=== PATIENT | female | born 1935 | race African-American/Black ===

== ENCOUNTER 2018-02-04 04:23 | Emergency (ER) | payer MEDICARE, MEDICAID ==
[~2018-02-04] VITALS: Ht 157.5 cm; Wt 87.0 kg
[~2018-02-04 04:23] MED LIST: ALLO100T PO; ANORO; ATEN50TA PO; AZOPT EACHEYE; CHOL500010 PO; CLON0.3T PO; DIPH25CA83 PO; FOLI-43 PO; FURO40TA5 PO; GLV55 PO; INSNOV SUBCUT; INSU100I19 SQ; MAGN400C PO; SIMV20TA6 PO; VALS160T2 PO; VERA240C2 PO
[2018-02-04 07:31] LABS: BASOPHILS % 0.5 % (0.0-2.0); EOSINOPHILS % 0.6 % (0.0-5.0); HEMATOCRIT. 35.5 % (36.0-48.0); HEMOGLOBIN. 11.4 g/dL (12.0-16.0); LYMPHOCYTES % 12.9 % (20.0-50.0); MEAN CORPUSCULAR HEMOGLOBIN 27.2 pg (28.0-32.0); MEAN CORPUSCULAR VOLUME 84.8 fL (81.0-99.0); MEAN PLATELET VOLUME 8.5 fl (7.4-10.4); MONOCYTES % 6.9 % (2.0-8.0); NEUTROPHILS % 79.1 % (40.0-76.0); PLATELET 261 x1000/uL (130-400); RED BLOOD CELL COUNT 4.19 mill/uL (4.2-5.4); RED CELL DISTRIBUTION WIDTH 15.7 % (11.6-14.6)
[2018-02-04 07:38] LABS: KETONES URINE NEGATIVE (NEGATIVE); LEUKOCYTE ESTERASE URINE NEGATIVE (NEGATIVE); NITRITE URINE NEGATIVE (NEGATIVE); OCCULT BLOOD URINE NEGATIVE (NEGATIVE); PROTEIN URINE NEGATIVE (NEGATIVE); SPECIFIC GRAVITY URINE 1.004 (1.005-1.030); UROBILINOGEN URINE 0.2 E.U./dL (0.2-1.0)
[2018-02-04 07:40] LABS: INR 1.1; PARTIAL THROMBOPLASTIN TIME 27.2 sec (23.4-31.0); PROTHROMBIN TIME 11.2 sec (9.4-11.6)
[2018-02-04 07:51] LABS: CHLORIDE 102 mEq/L (98-107)
[2018-02-04 07:51] LABS: CLARITY URINE CLEAR (CLEAR); COLOR URINE YELLOW (YELLOW)
[2018-02-04 07:56] LABS: TROPONIN I 0.03 ng/mL (0.00-0.04)
[2018-02-04 11:44] VITALS: BP 162/82
== END 2018-02-04 11:45 | disposition home or self-care (01) ==
LOC: ER 04:23
DX: R00.2 Palpitations (principal); E11.9 Type 2 diabetes mellitus without complications; I11.0 Hypertensive heart disease with heart failure; I50.9 Heart failure, unspecified; Z86.73 Personal history of transient ischemic attack (TIA), and cerebral infarction without residual deficits; Z79.4 Long term (current) use of insulin; Z91.013 Allergy to seafood; Z91.048 Other nonmedicinal substance allergy status
CPT/HCPCS: 36415; 71045; 80053; 81003; 82962; 83880; 84484; 85025; 85610; 85730; 93005; 99285

== ENCOUNTER 2018-03-01 21:04 | Emergency (ER) | payer MEDICARE, MEDICAID ==
[~2018-03-01] VITALS: Ht 154.9 cm; Wt 87.0 kg
[2018-03-01 21:15] VITALS: BP 163/61
== END 2018-03-02 03:20 | disposition left against medical advice (07) ==
LOC: ER 21:54
DX: H92.09 Otalgia, unspecified ear (principal); Z53.21 Procedure and treatment not carried out due to patient leaving prior to being seen by health care provider

== ENCOUNTER 2018-03-15 13:25 | Emergency (ER) | payer MEDICARE, MEDICAID ==
[~2018-03-15] VITALS: Ht 154.9 cm; Wt 87.0 kg
[2018-03-15 14:22] LABS: EOSINOPHILS % 0.9 % (0.0-5.0); HEMATOCRIT. 35.7 % (36.0-48.0); HEMOGLOBIN. 11.6 g/dL (12.0-16.0); MEAN CORPUSCULAR HEMOGLOBIN 27.7 pg (28.0-32.0); MEAN CORPUSCULAR VOLUME 85.3 fL (81.0-99.0); MEAN PLATELET VOLUME 8.1 fl (7.4-10.4); NEUTROPHILS % 80.1 % (40.0-76.0); PLATELET 244 x1000/uL (130-400); RED BLOOD CELL COUNT 4.18 mill/uL (4.2-5.4); RED CELL DISTRIBUTION WIDTH 16.7 % (11.6-14.6)
[2018-03-15 14:25] LABS: CHLORIDE 103 mEq/L (98-107)
[2018-03-15 14:38] LABS: INR 1.1; PROTHROMBIN TIME 11.7 sec (9.4-11.6)
[2018-03-15] MEDS ORDERED: CLONIDINE 0.1MG TABLET PO ONE (15:15)
[2018-03-15] MEDS ORDERED: ONDANSETRON 4MG ODT PO ONE (16:15)
[2018-03-15 17:20] VITALS: BP 170/73
== END 2018-03-15 17:30 | disposition home or self-care (01) ==
LOC: ER 14:54
DX: I10 Essential (primary) hypertension (principal); E11.65 Type 2 diabetes mellitus with hyperglycemia; R42 Dizziness and giddiness; E78.00 Pure hypercholesterolemia, unspecified; Z79.4 Long term (current) use of insulin; Z90.49 Acquired absence of other specified parts of digestive tract
CPT/HCPCS: 36415; 80053; 83690; 85025; 85610; 93005; 99285; Q0162

== ENCOUNTER → 2018-03-22 | Outpatient (CLI) | payer MEDICARE, MEDICAID | END | disposition home or self-care (01) | LOC: MAMMO 10:08 | PROVIDERS: ATTEND Specialist | DX: Z12.31 Encounter for screening mammogram for malignant neoplasm of breast (principal) | CPT/HCPCS: 77067 ==

== ENCOUNTER 2018-09-06 15:59 | Inpatient (IN) | payer MEDICARE, MEDICAID ==
[~2018-09-06] VITALS: Ht 152.4 cm; Wt 81.6 kg
[~2018-09-06 15:59] MED LIST changes: -ANORO; -AZOPT EACHEYE; -CHOL500010 PO; +CLOP75TA16 MT; +DEXL60CA3 MT; -DIPH25CA83 PO; -GLV55 PO; -INSNOV SUBCUT; -INSU100I19 SQ; -MAGN400C PO; +TERA2CAP4 MT
[2018-09-06] MEDS ORDERED: MORPHINE SULFATE 4 MG/ML CPJ (NOT FOR IM USE) IV STA (20:54)
[2018-09-06] MEDS ORDERED: ONDANSETRON HCL 4MG/2ML INJ IV STA (20:54)
[2018-09-06 21:52] LABS: BASOPHILS % 0.8 % (0.0-2.0); CHLORIDE 102 mEq/L (98-107); EOSINOPHILS % 4.6 % (0.0-5.0); HEMATOCRIT. 33.4 % (36.0-48.0); HEMOGLOBIN. 10.8 g/dL (12.0-16.0); LYMPHOCYTES % 23.1 % (20.0-50.0); MEAN CORPUSCULAR HEMOGLOBIN 28.8 pg (28.0-32.0); MEAN CORPUSCULAR VOLUME 88.8 fL (81.0-99.0); MEAN PLATELET VOLUME 9.1 fl (7.4-10.4); MONOCYTES % 10.6 % (2.0-8.0); NEUTROPHILS % 60.9 % (40.0-76.0); PLATELET 212 x1000/uL (130-400); RED BLOOD CELL COUNT 3.76 mill/uL (4.2-5.4); RED CELL DISTRIBUTION WIDTH 15.1 % (11.6-14.6)
[2018-09-06 21:54] LABS: INR 1.1; PROTHROMBIN TIME 11.1 sec (9.1-11.1)
[2018-09-06] MEDS ORDERED: METRONIDAZOLE 500 MG PREMIX 100 ML IV ONE (23:15)
[2018-09-06] MEDS ORDERED: CEFTRIAXONE 1 G PREMIX 50 ML IV ONE (23:15)
[2018-09-07] VITALS (7 sets, daily range): BP systolic 109–205; BP diastolic 57–77
[2018-09-07] MEDS ORDERED: ACETAMINOPHEN 325MG TABLET PO PRN
[2018-09-07] MEDS ORDERED: ONDANSETRON HCL 4MG/2ML INJ IV PRN
[2018-09-07] MEDS ORDERED: MAGNESIUM/ALUMINUM HYDROXIDE/SIMETHICONE 30ML UDC PO PRN
[2018-09-07] MEDS ORDERED: DOCUSATE SODIUM 100MG CAPSULE PO PRN
[2018-09-07] MEDS: CLONIDINE 0.1MG TABLET PO PRN ×2 (02:48→19:44)
[2018-09-07] MEDS: SODIUM CHLORIDE 0.9% 1,000 ML IV SCH ×3 (04:33→19:44)
[2018-09-07] MEDS ORDERED: DEXTROSE 50% WATER 50ML SYRINGE IV PRN (11:45)
[2018-09-07] MEDS ORDERED: BLOOD SUGAR DIAGNOSTIC STRIP TEST SCH (12:00)
[2018-09-07] MEDS: BLOOD SUGAR DIAGNOSTIC STRIP TEST SCH ×3 (12:49→21:12)
[2018-09-07] MEDS: INSULIN LISPRO 100 UNITS/ML SUBCUT SCH ×3 (12:55→21:00)
[2018-09-07] MEDS ORDERED: LEVOFLOXACIN 500MG PREMIX 100 ML IV NR (13:00)
[2018-09-07] MEDS: INSULIN GLARGINE UD 100 UNITS/ML SYR SUBCUT SCH (13:40)
[2018-09-07] MEDS: LOSARTAN POTASSIUM 100 MG TABLET PO SCH (16:09)
[2018-09-07] MEDS: CLOPIDOGREL 75MG TABLET PO SCH (16:09)
[2018-09-07] MEDS: METRONIDAZOLE 500 MG PREMIX 100 ML IV SCH ×2 (16:17→21:53)
[2018-09-07] MEDS: ATORVASTATIN CALCIUM 20MG TABLET PO SCH (21:11)
[2018-09-07] MEDS: TERAZOSIN HCL 1MG CAPSULE PO SCH (21:11)
[2018-09-07] MEDS: FUROSEMIDE 20MG TABLET PO SCH (21:11)
[2018-09-07] MEDS: ATENOLOL 50 MG TABLET PO SCH (21:12)
[2018-09-08] VITALS (7 sets, daily range): BP systolic 160–200; BP diastolic 51–80
[2018-09-08] MEDS: CLONIDINE 0.1MG TABLET PO PRN (03:55)
[2018-09-08] MEDS: METRONIDAZOLE 500 MG PREMIX 100 ML IV SCH ×3 (05:51→21:33)
[2018-09-08] MEDS: INSULIN LISPRO 100 UNITS/ML SUBCUT SCH ×4 (06:36→21:46)
[2018-09-08] MEDS: BLOOD SUGAR DIAGNOSTIC STRIP TEST SCH ×4 (06:37→21:33)
[2018-09-08] MEDS ORDERED: AMLODIPINE 10MG TABLET PO SCH (08:15)
[2018-09-08 08:28] LABS: BASOPHILS % 0.8 % (0.0-2.0); EOSINOPHILS % 4.2 % (0.0-5.0); HEMATOCRIT. 33.3 % (36.0-48.0); HEMOGLOBIN. 10.8 g/dL (12.0-16.0); LYMPHOCYTES % 15.8 % (20.0-50.0); MEAN CORPUSCULAR HEMOGLOBIN 28.9 pg (28.0-32.0); MEAN PLATELET VOLUME 9.2 fl (7.4-10.4); MONOCYTES % 10.2 % (2.0-8.0); PLATELET 205 x1000/uL (130-400); RED BLOOD CELL COUNT 3.74 mill/uL (4.2-5.4); RED CELL DISTRIBUTION WIDTH 14.9 % (11.6-14.6)
[2018-09-08] MEDS: FUROSEMIDE 20MG TABLET PO SCH ×2 (08:44→21:33)
[2018-09-08] MEDS: ATENOLOL 50 MG TABLET PO SCH ×2 (08:44→21:32)
[2018-09-08] MEDS: CLOPIDOGREL 75MG TABLET PO SCH (08:44)
[2018-09-08] MEDS: LOSARTAN POTASSIUM 100 MG TABLET PO SCH (08:44)
[2018-09-08] MEDS: SODIUM CHLORIDE 0.9% 1,000 ML IV SCH (08:48)
[2018-09-08] MEDS: INSULIN GLARGINE UD 100 UNITS/ML SYR SUBCUT SCH (10:03)
[2018-09-08] MEDS: CLONIDINE 0.2MG TABLET PO SCH ×3 (10:08→21:33)
[2018-09-08] MEDS ORDERED: MAGNESIUM 2 G PREMIX 50 ML IV SCH (11:00)
[2018-09-08] MEDS ORDERED: MAGNESIUM SULFATE 2 GM in DEXTROSE 5% WATER 46 ML IV SCH (11:00)
[2018-09-08] MEDS ORDERED: LEVOFLOXACIN 250MG PREMIX 50 ML IV SCH (13:00)
[2018-09-08] MEDS: DILTIAZEM HCL 30MG TABLET PO SCH ×2 (13:49→21:32)
[2018-09-08] MEDS ORDERED: MAGNESIUM 2 G PREMIX 50 ML IV NR (14:45)
[2018-09-08] MEDS: ATORVASTATIN CALCIUM 20MG TABLET PO SCH (21:33)
[2018-09-08] MEDS: TERAZOSIN HCL 1MG CAPSULE PO SCH (22:12)
[2018-09-09] VITALS: BP 129/45
[2018-09-09 04:00] VITALS: BP 171/91
[2018-09-09] MEDS: CLONIDINE 0.1MG TABLET PO PRN (04:38)
[2018-09-09] MEDS: DILTIAZEM HCL 30MG TABLET PO SCH (06:15)
[2018-09-09] MEDS: CLONIDINE 0.2MG TABLET PO SCH (06:15)
[2018-09-09] MEDS: METRONIDAZOLE 500 MG PREMIX 100 ML IV SCH (06:15)
[2018-09-09] MEDS: BLOOD SUGAR DIAGNOSTIC STRIP TEST SCH ×2 (06:18→11:17)
[2018-09-09] MEDS: INSULIN LISPRO 100 UNITS/ML SUBCUT SCH ×2 (06:20→12:24)
[2018-09-09 07:48] VITALS: BP 117/46
[2018-09-09 07:54] LABS: BASOPHILS % 0.7 % (0.0-2.0); EOSINOPHILS % 4.9 % (0.0-5.0); HEMATOCRIT. 32.2 % (36.0-48.0); HEMOGLOBIN. 10.7 g/dL (12.0-16.0); LYMPHOCYTES % 17.8 % (20.0-50.0); MEAN CORPUSCULAR HEMOGLOBIN 29.2 pg (28.0-32.0); MEAN CORPUSCULAR VOLUME 88.1 fL (81.0-99.0); MONOCYTES % 10.8 % (2.0-8.0); NEUTROPHILS % 65.8 % (40.0-76.0); PLATELET 197 x1000/uL (130-400); RED BLOOD CELL COUNT 3.66 mill/uL (4.2-5.4); RED CELL DISTRIBUTION WIDTH 14.8 % (11.6-14.6)
[2018-09-09] MEDS: ATENOLOL 50 MG TABLET PO SCH (08:37)
[2018-09-09 08:57] VITALS: BP 136/58
[2018-09-09] MEDS: LOSARTAN POTASSIUM 100 MG TABLET PO SCH (08:57)
[2018-09-09] MEDS: CLOPIDOGREL 75MG TABLET PO SCH (08:57)
[2018-09-09] MEDS: FUROSEMIDE 20MG TABLET PO SCH (08:57)
[2018-09-09] MEDS ORDERED: AMLODIPINE 5MG TABLET PO SCH (09:00)
[2018-09-09] MEDS ORDERED: INSULIN GLARGINE UD 100 UNITS/ML SYR SUBCUT SCH (10:00)
[2018-09-09 11:54] VITALS: BP 141/54
== END 2018-09-09 14:05 | disposition home or self-care (01) | DRG 391 ==
LOC: ER 15:59 → 6EST 09-07 00:01 → ENRESERV 09-07 01:56 → 8WST 09-07 17:32
PROVIDERS: ADMIT Family Medicine Adult Medicine; ATTEND Family Medicine Adult Medicine
DX: K57.92 Diverticulitis of intestine, part unspecified, without perforation or abscess without bleeding (principal); I50.33 Acute on chronic diastolic (congestive) heart failure; J44.1 Chronic obstructive pulmonary disease with (acute) exacerbation; I50.30 Unspecified diastolic (congestive) heart failure; I42.1 Obstructive hypertrophic cardiomyopathy; D64.9 Anemia, unspecified; R00.1 Bradycardia, unspecified; R79.89 Other specified abnormal findings of blood chemistry; E78.5 Hyperlipidemia, unspecified; E11.51 Type 2 diabetes mellitus with diabetic peripheral angiopathy without gangrene; I11.0 Hypertensive heart disease with heart failure; G89.29 Other chronic pain; I16.0 Hypertensive urgency; E11.65 Type 2 diabetes mellitus with hyperglycemia; I27.20 Pulmonary hypertension, unspecified; M10.9 Gout, unspecified; K21.9 Gastro-esophageal reflux disease without esophagitis; Z83.3 Family history of diabetes mellitus; Z82.49 Family history of ischemic heart disease and other diseases of the circulatory system; Z90.710 Acquired absence of both cervix and uterus; Z90.49 Acquired absence of other specified parts of digestive tract; Z91.013 Allergy to seafood; Z91.048 Other nonmedicinal substance allergy status; Z79.899 Other long term (current) drug therapy
CPT/HCPCS: 36415; 71045; 74176; 80048; 82962; 83735; 83880; 84484; 93005; 96365; 96368; 96372; 99285; C1893; J0696; J1815; J1956; J3475; J3490; J7030; J7060

== ENCOUNTER 2020-06-11 11:51 | Emergency (ER) | payer MEDICARE, MEDICAID ==
[~2020-06-11] VITALS: Ht 167.6 cm; Wt 75.0 kg
[~2020-06-11 11:51] MED LIST changes: -CLOP75TA16 MT; +CLOP75TA4 MT; +SIMV-43 PO; -SIMV20TA6 PO; +TRAZ-251 MT
[2020-06-11] MEDS ORDERED: ONDANSETRON HCL 4MG/2ML INJ IV ONE (13:15)
[2020-06-11 13:57] LABS: BASOPHILS % 1.2 % (0.0-2.0); HEMATOCRIT. 36.3 % (36.0-48.0); HEMOGLOBIN. 12.2 g/dL (12.0-16.0); LYMPHOCYTES % 18.3 % (20.0-50.0); MEAN CORPUSCULAR HEMOGLOBIN 29.7 pg (28.0-32.0); MEAN CORPUSCULAR VOLUME 88.3 fL (81.0-99.0); MEAN PLATELET VOLUME 8.1 fl (7.4-10.4); MONOCYTES % 8.4 % (2.0-8.0); NEUTROPHILS % 70.1 % (40.0-76.0); PLATELET 262 x1000/uL (130-400); RED BLOOD CELL COUNT 4.11 mill/uL (4.2-5.4); RED CELL DISTRIBUTION WIDTH 16.5 % (11.6-14.6)
[2020-06-11 14:02] LABS: CHLORIDE 100 mEq/L (98-107)
[2020-06-11] MEDS ORDERED: HYDRALAZINE 20MG/ML VIAL IV ONE (14:15)
[2020-06-11] MEDS ORDERED: ASPIRIN 325MG EC TABLET PO ONE (15:15)
[2020-06-11] MEDS ORDERED: ATENOLOL 50 MG TABLET PO SCH (17:00)
[2020-06-11 17:08] LABS: HDL CHOLESTEROL 51 mg/dL (40-59); LDL CHOLESTEROL 97 mg/dL (5-100)
[2020-06-11 20:00] VITALS: BP 188/82
[2020-06-11] MEDS ORDERED: ATORVASTATIN CALCIUM 20MG TABLET PO SCH (21:00)
[2020-06-11] MEDS ORDERED: HYDRALAZINE HCL 10MG TABLET PO SCH (21:00)
[2020-06-11] MEDS ORDERED: VERAPAMIL HCL 40MG TABLET PO SCH (22:00)
[2020-06-12] MEDS ORDERED: REGADENOSON 0.4 MG/5 ML IV NR (08:00)
== END 2020-06-11 21:49 | disposition left against medical advice (07) ==
LOC: ER 11:51 → EDBEDREQ 15:18 → ER 21:49 → CANBEDREQ 22:37
DX: I25.10 Atherosclerotic heart disease of native coronary artery without angina pectoris (principal); E11.9 Type 2 diabetes mellitus without complications; I10 Essential (primary) hypertension; E87.1 Hypo-osmolality and hyponatremia; J44.9 Chronic obstructive pulmonary disease, unspecified; F02.80 Dementia in other diseases classified elsewhere, unspecified severity, without behavioral disturbance, psychotic disturbance, mood disturbance, and anxiety; M54.5 Low back pain; G30.9 Alzheimer's disease, unspecified; R11.2 Nausea with vomiting, unspecified; Z86.73 Personal history of transient ischemic attack (TIA), and cerebral infarction without residual deficits; Z91.013 Allergy to seafood; Z88.8 Allergy status to other drugs, medicaments and biological substances; Z91.041 Radiographic dye allergy status; Z79.899 Other long term (current) drug therapy
CPT/HCPCS: 36415; 71045; 80053; 80061; 83880; 84484; 85025; 93005; 96374; 96375; 99285; J0360; J2405

== ENCOUNTER 2020-06-17 11:28 | Emergency (ER) | payer MEDICARE, MEDICAID ==
[~2020-06-17] VITALS: Ht 157.5 cm; Wt 82.0 kg
[2020-06-17 12:36] LABS: CLARITY URINE CLEAR (CLEAR); COLOR URINE YELLOW (YELLOW); KETONES URINE NEGATIVE (NEGATIVE); LEUKOCYTE ESTERASE URINE NEGATIVE (NEGATIVE); NITRITE URINE NEGATIVE (NEGATIVE); OCCULT BLOOD URINE NEGATIVE (NEGATIVE); PROTEIN URINE 2+ (NEGATIVE); SPECIFIC GRAVITY URINE 1.019 (1.005-1.030); UROBILINOGEN URINE 0.2 E.U./dL (0.2-1.0)
[2020-06-17 12:37] LABS: BASOPHILS % 0.9 % (0.0-2.0); EOSINOPHILS % 0.7 % (0.0-5.0); HEMATOCRIT. 36.4 % (36.0-48.0); HEMOGLOBIN. 12.1 g/dL (12.0-16.0); LYMPHOCYTES % 14.8 % (20.0-50.0); MEAN CORPUSCULAR HEMOGLOBIN 29.4 pg (28.0-32.0); MEAN CORPUSCULAR VOLUME 88.7 fL (81.0-99.0); MEAN PLATELET VOLUME 8.1 fl (7.4-10.4); MONOCYTES % 5.9 % (2.0-8.0); NEUTROPHILS % 77.7 % (40.0-76.0); PLATELET 290 x1000/uL (130-400); RED BLOOD CELL COUNT 4.11 mill/uL (4.2-5.4)
[2020-06-17 12:44] LABS: CHLORIDE 98 mEq/L (98-107)
[2020-06-17 12:46] LABS: INR 1.1; PROTHROMBIN TIME 11.3 sec (9.6-11.0)
[2020-06-17] MEDS ORDERED: AMLODIPINE 10MG TABLET PO ONE (13:00)
[2020-06-17] MEDS ORDERED: ACETAMINOPHEN WITH CODEINE 300/30MG TABLET PO ONE (13:00)
[2020-06-17] MEDS ORDERED: CLONIDINE 0.1MG TABLET PO NR (15:30)
[2020-06-17 16:04] VITALS: BP 165/77
== END 2020-06-17 16:05 | disposition home or self-care (01) ==
LOC: ER 11:28
DX: M54.5 Low back pain (principal); I16.0 Hypertensive urgency; E11.9 Type 2 diabetes mellitus without complications; Z90.49 Acquired absence of other specified parts of digestive tract; Z91.041 Radiographic dye allergy status; Z91.013 Allergy to seafood
CPT/HCPCS: 36415; 72131; 80053; 81003; 85025; 93005; 99285

== ENCOUNTER 2020-10-31 12:34 | Emergency (ER) | payer MEDICARE, MEDICAID ==
[~2020-10-31] VITALS: Ht 154.9 cm; Wt 82.0 kg
[2020-10-31 12:44] VITALS: BP 152/64
[2020-10-31] MEDS ORDERED: ACETAMINOPHEN 325MG TABLET PO ONE (16:30)
[2020-10-31 19:24] LABS: CLARITY URINE CLOUDY (CLEAR); COLOR URINE YELLOW (YELLOW); KETONES URINE TRACE (NEGATIVE); LEUKOCYTE ESTERASE URINE 1+ (NEGATIVE); NITRITE URINE NEGATIVE (NEGATIVE); OCCULT BLOOD URINE 2+ (NEGATIVE); PROTEIN URINE 3+ (NEGATIVE); SPECIFIC GRAVITY URINE 1.024 (1.005-1.030)
[2020-10-31] MEDS ORDERED: ACETAMINOPHEN 325MG TABLET PO NR (20:30)
== END 2020-10-31 20:49 | disposition home or self-care (01) ==
LOC: ER 12:34
DX: N39.0 Urinary tract infection, site not specified (principal); M43.16 Spondylolisthesis, lumbar region; I11.9 Hypertensive heart disease without heart failure; E11.9 Type 2 diabetes mellitus without complications; J45.909 Unspecified asthma, uncomplicated; Z79.899 Other long term (current) drug therapy
CPT/HCPCS: 72100; 81003; 87077; 87186; 99284

== ENCOUNTER 2021-07-08 14:36 | Inpatient (IN) | payer MEDICARE, MEDICAID ==
[~2021-07-08] VITALS: Ht 153.4 cm; Wt 65.8 kg
[2021-07-08] MEDS ORDERED: ASPIRIN 81MG TABLET PO ONE (19:15)
[2021-07-08 19:19] LABS: BASOPHILS % 0.7 % (0.0-2.0); EOSINOPHILS % 3.5 % (0.0-5.0); HEMATOCRIT. 34.2 % (36.0-48.0); HEMOGLOBIN. 11.1 g/dL (12.0-16.0); LYMPHOCYTES % 33.9 % (20.0-50.0); MEAN CORPUSCULAR HEMOGLOBIN 28.2 pg (28.0-32.0); MEAN CORPUSCULAR VOLUME 87.1 fL (81.0-99.0); MONOCYTES % 11.8 % (2.0-8.0); NEUTROPHILS % 50.1 % (40.0-76.0); PLATELET 249 x1000/uL (130-400); RED BLOOD CELL COUNT 3.92 mill/uL (4.2-5.4); RED CELL DISTRIBUTION WIDTH 16.3 % (11.6-14.6)
[2021-07-08 19:26] LABS: CHLORIDE 103 mEq/L (98-107)
[2021-07-08] MEDS ORDERED: MORPHINE SULFATE 4 MG/ML CPJ (NOT FOR IM USE) IV ONE (19:45)
[2021-07-08] MEDS ORDERED: HYDRALAZINE 20MG/ML VIAL IV NR (19:45)
[2021-07-08] MEDS ORDERED: DEXTROSE 50% WATER 50ML SYRINGE IV NR ×2 (20:15→22:00)
[2021-07-08] MEDS ORDERED: DIPHENHYDRAMINE 50MG/ML VIAL IV PRN (21:45)
[2021-07-08] MEDS ORDERED: ACETAMINOPHEN 325MG TABLET PO PRN ×2 (21:45)
[2021-07-08] MEDS ORDERED: ACETAMINOPHEN 650MG SUPP PR PRN (21:45)
[2021-07-08] MEDS ORDERED: MAGNESIUM/ALUMINUM HYDROXIDE/SIMETHICONE 30ML UDC PO PRN (21:45)
[2021-07-08] MEDS ORDERED: GUAIFENESIN 200MG/10ML SUGAR FREE UDC PO PRN (21:45)
[2021-07-08] MEDS ORDERED: NITROGLYCERIN 50MG PREMIX 250 ML IV PRN (21:45)
[2021-07-08] MEDS ORDERED: ONDANSETRON HCL 4MG/2ML INJ IV PRN (21:45)
[2021-07-08] MEDS ORDERED: CLONIDINE 0.1MG TABLET PO PRN (21:45)
[2021-07-08] MEDS ORDERED: LORAZEPAM 0.5MG TABLET PO PRN (21:45)
[2021-07-08] MEDS ORDERED: IPRATROPIUM/ALBUTEROL 0.5-3(2.5)MG/3ML NEB HHN PRN (21:45)
[2021-07-08] MEDS ORDERED: NITROGLYCERIN OINT 1GM/INCH UDPKT TD SCH (21:45)
[2021-07-08] MEDS ORDERED: DOCUSATE SODIUM 100MG CAPSULE PO PRN (21:45)
[2021-07-08] MEDS ORDERED: HYDROCODONE/ACETAMINOPHEN 5/325MG TABLET PO PRN (21:45)
[2021-07-08] MEDS ORDERED: MORPHINE SULFATE 2 MG/ML CPJ (NOT FOR IM USE) IV PRN (21:45)
[2021-07-08] MEDS ORDERED: DEXTROSE 50% WATER 50ML SYRINGE IV PRN (22:30)
[2021-07-08] MEDS ORDERED: NALOXONE HCL 0.4MG/ML VIAL IV PRN (22:45)
[2021-07-08] MEDS: AMLODIPINE 10MG TABLET PO SCH (23:43)
[2021-07-09] MEDS ORDERED: CLONIDINE 0.2MG TABLET PO ONE (03:00)
[2021-07-09] MEDS ORDERED: ENALAPRIL 2.5MG/2ML VIAL 2ML IV ONE (03:00)
[2021-07-09] MEDS ORDERED: ENALAPRIL 1.25MG/ML VIAL 1ML IV NR (03:45)
[2021-07-09 05:47] LABS: BASOPHILS % 0.5 % (0.0-2.0); EOSINOPHILS % 2.3 % (0.0-5.0); HEMATOCRIT. 36.4 % (36.0-48.0); LYMPHOCYTES % 14.8 % (20.0-50.0); MEAN PLATELET VOLUME 8.8 fl (7.4-10.4); MONOCYTES % 11.4 % (2.0-8.0); PLATELET 240 x1000/uL (130-400); RED BLOOD CELL COUNT 4.28 mill/uL (4.2-5.4); RED CELL DISTRIBUTION WIDTH 15.9 % (11.6-14.6)
[2021-07-09 05:51] LABS: CHLORIDE 104 mEq/L (98-107)
[2021-07-09 05:59] LABS: CREATINE KINASE 73 IU/L (26-192); HDL CHOLESTEROL 63 mg/dL (40-59)
[2021-07-09 06:01] LABS: LDL CHOLESTEROL 54 mg/dL (5-100)
[2021-07-09 06:11] LABS: T4 FREE 1.28 ng/dL (0.76-1.46)
[2021-07-09] MEDS ORDERED: HYDRALAZINE 20MG/ML VIAL IV ONE (06:15)
[2021-07-09] MEDS: BLOOD SUGAR DIAGNOSTIC STRIP TEST SCH ×4 (06:30→20:23)
[2021-07-09] MEDS: INSULIN LISPRO 100 UNITS/ML SUBCUT SCH ×4 (07:00→20:23)
[2021-07-09] MEDS: AMLODIPINE 10MG TABLET PO SCH (09:12)
[2021-07-09] MEDS ORDERED: FUROSEMIDE 20MG/2ML VIAL IVP SCH (10:45)
[2021-07-09] MEDS: CLONIDINE 0.2MG TABLET PO SCH ×2 (11:04→20:15)
[2021-07-09] MEDS: ATENOLOL 25MG TABLET PO SCH (13:06)
[2021-07-09 15:15] VITALS: BP 141/44
[2021-07-09 16:00] VITALS: BP 141/44
[2021-07-09] MEDS ORDERED: IPRATROPIUM/ALBUTEROL 0.5-3(2.5)MG/3ML NEB HHN SCH (18:30)
[2021-07-09 20:00] VITALS: BP 179/60
[2021-07-10] VITALS: BP 101/59
[2021-07-10 04:00] VITALS: BP 174/54
[2021-07-10] MEDS: BLOOD SUGAR DIAGNOSTIC STRIP TEST SCH ×2 (06:33→13:00)
[2021-07-10] MEDS: INSULIN LISPRO 100 UNITS/ML SUBCUT SCH ×2 (06:33→13:06)
[2021-07-10 07:26] LABS: BASOPHILS % 0.7 % (0.0-2.0); EOSINOPHILS % 3.8 % (0.0-5.0); HEMOGLOBIN. 11.2 g/dL (12.0-16.0); LYMPHOCYTES % 19.6 % (20.0-50.0); MEAN CORPUSCULAR HEMOGLOBIN 28.2 pg (28.0-32.0); MEAN CORPUSCULAR VOLUME 85.4 fL (81.0-99.0); MEAN PLATELET VOLUME 8.9 fl (7.4-10.4); MONOCYTES % 11.7 % (2.0-8.0); NEUTROPHILS % 64.2 % (40.0-76.0); PLATELET 224 x1000/uL (130-400); RED BLOOD CELL COUNT 3.98 mill/uL (4.2-5.4); RED CELL DISTRIBUTION WIDTH 16.6 % (11.6-14.6)
[2021-07-10 08:00] VITALS: BP 155/62
[2021-07-10] MEDS: CLONIDINE 0.2MG TABLET PO SCH (08:42)
[2021-07-10] MEDS: AMLODIPINE 10MG TABLET PO SCH (08:42)
[2021-07-10] MEDS: ATENOLOL 25MG TABLET PO SCH (08:42)
[2021-07-10] MEDS ORDERED: MAGNESIUM 1 G PREMIX 100 ML IV SCH (11:00)
[2021-07-10 12:00] VITALS: BP 141/46
[2021-07-10 16:00] VITALS: BP 124/48
[2021-07-10 16:36] VITALS: BP 124/48
== END 2021-07-10 17:17 | disposition home or self-care (01) | DRG 304 ==
LOC: ER 14:36 → MICUSO 21:42 → EDBEDREQTM 22:12 → EDBEDREQSVC 22:12 → EDBEDREQ 22:12 → 8WST 07-09 14:08
PROVIDERS: ADMIT Hospitalist; ATTEND Family Medicine Adult Medicine
DX: I16.1 Hypertensive emergency (principal); N17.0 Acute kidney failure with tubular necrosis; I42.1 Obstructive hypertrophic cardiomyopathy; E11.649 Type 2 diabetes mellitus with hypoglycemia without coma; E11.51 Type 2 diabetes mellitus with diabetic peripheral angiopathy without gangrene; I10 Essential (primary) hypertension; E78.5 Hyperlipidemia, unspecified; F10.10 Alcohol abuse, uncomplicated; I25.10 Atherosclerotic heart disease of native coronary artery without angina pectoris; J44.9 Chronic obstructive pulmonary disease, unspecified; N32.89 Other specified disorders of bladder; Z86.73 Personal history of transient ischemic attack (TIA), and cerebral infarction without residual deficits; Z90.49 Acquired absence of other specified parts of digestive tract; Z95.820 Peripheral vascular angioplasty status with implants and grafts; Z91.041 Radiographic dye allergy status; Z91.013 Allergy to seafood; Z79.899 Other long term (current) drug therapy; R10.11 Right upper quadrant pain
CPT/HCPCS: 36415; 71045; 74176; 76705; 80048; 80053; 80061; 82550; 82962; 83036; 83735; 83880; 84439; 84443; 84484; 85025; 93005; 93306; 97162; 97166; 97535; 99291; J0360; J1815; J1940; J3475; J3490; J7040

== ENCOUNTER 2022-05-15 17:39 | Inpatient (IN) | payer MEDICARE, MEDICAID ==
[~2022-05-15] VITALS: Ht 157.5 cm; Wt 64.2 kg
[~2022-05-15 17:39] MED LIST changes: +CLOP-31 MT; -CLOP75TA4 MT
[2022-05-15 21:49] LABS: EOSINOPHILS % 2.8 % (0.0-5.0); HEMATOCRIT. 31.9 % (36.0-48.0); HEMOGLOBIN. 10.1 g/dL (12.0-16.0); LYMPHOCYTES % 20.6 % (20.0-50.0); MEAN CORPUSCULAR HEMOGLOBIN 26.8 pg (28.0-32.0); MEAN CORPUSCULAR VOLUME 84.5 fL (81.0-99.0); MEAN PLATELET VOLUME 8.6 fl (7.4-10.4); MONOCYTES % 10.1 % (2.0-8.0); NEUTROPHILS % 65.5 % (40.0-76.0); PLATELET 231 x1000/uL (130-400); RED BLOOD CELL COUNT 3.78 mill/uL (4.2-5.4); RED CELL DISTRIBUTION WIDTH 16.3 % (11.6-14.6)
[2022-05-15 21:52] LABS: CHLORIDE 102 mEq/L (98-107)
[2022-05-15] MEDS ORDERED: FUROSEMIDE 40MG/4ML VIAL IVP NR (22:30)
[2022-05-15] MEDS ORDERED: ASPIRIN 325MG EC TABLET PO NR (22:30)
[2022-05-15] MEDS ORDERED: CLONIDINE 0.2MG TABLET PO ONE (23:45)
[2022-05-16] MEDS ORDERED: MORPHINE SULFATE 2 MG/ML CPJ (NOT FOR IM USE) IV PRN (00:15)
[2022-05-16] MEDS ORDERED: ACETAMINOPHEN 650MG SUPP PR PRN ×2 (00:15)
[2022-05-16] MEDS ORDERED: ACETAMINOPHEN 325MG TABLET PO PRN ×2 (00:15)
[2022-05-16] MEDS ORDERED: DOCUSATE SODIUM 100MG CAPSULE PO PRN (00:15)
[2022-05-16] MEDS ORDERED: MAGNESIUM/ALUMINUM HYDROXIDE/SIMETHICONE 30ML UDC PO PRN (00:15)
[2022-05-16] MEDS ORDERED: IPRATROPIUM/ALBUTEROL 0.5-3(2.5)MG/3ML NEB HHN PRN (00:15)
[2022-05-16] MEDS ORDERED: GUAIFENESIN 200MG/10ML SUGAR FREE UDC PO PRN (00:15)
[2022-05-16] MEDS ORDERED: HYDROCODONE/ACETAMINOPHEN 5/325MG TABLET PO PRN (00:15)
[2022-05-16] MEDS ORDERED: CLONIDINE 0.1MG TABLET PO PRN (00:15)
[2022-05-16] MEDS ORDERED: ONDANSETRON HCL 4MG/2ML INJ IV PRN (00:15)
[2022-05-16] MEDS ORDERED: ENOXAPARIN 60MG/0.6ML SYR SUBCUT NR ×2 (01:30→02:15)
[2022-05-16 02:00] LABS: CLARITY URINE CLEAR (CLEAR); COLOR URINE YELLOW (YELLOW); KETONES URINE NEGATIVE (NEGATIVE); LEUKOCYTE ESTERASE URINE 2+ (NEGATIVE); NITRITE URINE POSITIVE (NEGATIVE); OCCULT BLOOD URINE NEGATIVE (NEGATIVE); PH URINE 5.5 (4.5-8.0); PROTEIN URINE TRACE (NEGATIVE); SPECIFIC GRAVITY URINE 1.009 (1.005-1.030); UROBILINOGEN URINE 0.2 E.U./dL (0.2-1.0)
[2022-05-16] MEDS ORDERED: CEFTRIAXONE 1 G PREMIX 50 ML IV NR (02:15)
[2022-05-16 04:50] VITALS: BP 136/59
[2022-05-16 08:00] VITALS: BP 129/57
[2022-05-16] MEDS ORDERED: DEXTROSE 50% WATER 50ML SYRINGE IV PRN (08:15)
[2022-05-16] MEDS ORDERED: CEFTRIAXONE 1 G PREMIX 50 ML IV SCH (09:15)
[2022-05-16] MEDS: FUROSEMIDE 40MG/4ML VIAL IVP SCH (09:45)
[2022-05-16 12:00] VITALS: BP 149/57
[2022-05-16 12:27] LABS: CHLORIDE 102 mEq/L (98-107)
[2022-05-16 12:46] LABS: CREATINE KINASE 71 IU/L (26-192); CREATINE KINASE MB FRACTION 3.8 ng/mL (0.5-3.6); HDL CHOLESTEROL 63 mg/dL (40-59); LDL CHOLESTEROL 81 mg/dL (5-100)
[2022-05-16 16:00] VITALS: BP 162/65
[2022-05-16 16:20] LABS: CREATINE KINASE 50 IU/L (26-192)
[2022-05-16 20:00] VITALS: BP 189/75
[2022-05-17] VITALS (7 sets, daily range): BP systolic 142–184; BP diastolic 59–87
[2022-05-17] MEDS ORDERED: AMLODIPINE 2.5MG TABLET PO NR (00:15)
[2022-05-17] MEDS ORDERED: CLONIDINE 0.1MG TABLET PO NR (00:15)
[2022-05-17] MEDS: AMLODIPINE 2.5MG TABLET PO SCH ×2 (00:16→09:07)
[2022-05-17] MEDS: CLONIDINE 0.1MG TABLET PO PRN ×2 (05:12→16:08)
[2022-05-17] MEDS: CEFTRIAXONE 1,000 MG in DEXTROSE 5% WATER 50 ML IV SCH (05:13)
[2022-05-17 06:52] LABS: BASOPHILS % 0.6 % (0.0-2.0); EOSINOPHILS % 3.1 % (0.0-5.0); HEMATOCRIT. 34.3 % (36.0-48.0); HEMOGLOBIN. 11.1 g/dL (12.0-16.0); LYMPHOCYTES % 17.1 % (20.0-50.0); MEAN CORPUSCULAR HEMOGLOBIN 27.3 pg (28.0-32.0); MEAN CORPUSCULAR VOLUME 84.2 fL (81.0-99.0); MEAN PLATELET VOLUME 9.2 fl (7.4-10.4); MONOCYTES % 10.6 % (2.0-8.0); NEUTROPHILS % 68.6 % (40.0-76.0); PLATELET 206 x1000/uL (130-400); RED BLOOD CELL COUNT 4.07 mill/uL (4.2-5.4); RED CELL DISTRIBUTION WIDTH 16.6 % (11.6-14.6)
[2022-05-17] MEDS: FUROSEMIDE 40MG/4ML VIAL IVP SCH (09:05)
[2022-05-17] MEDS: METOPROLOL TARTRATE 50MG TABLET PO SCH (20:53)
[2022-05-18] VITALS (9 sets, daily range): BP systolic 129–180; BP diastolic 43–78
[2022-05-18] MEDS: CLONIDINE 0.1MG TABLET PO PRN (02:00)
[2022-05-18] MEDS: CEFTRIAXONE 1,000 MG in DEXTROSE 5% WATER 50 ML IV SCH (05:00)
[2022-05-18] MEDS ORDERED: NALOXONE HCL 0.4MG/ML VIAL IV PRN (08:00)
[2022-05-18] MEDS: AMLODIPINE 2.5MG TABLET PO SCH (09:30)
[2022-05-18] MEDS: ENOXAPARIN 30MG/0.3ML SYR SUBCUT SCH (09:32)
[2022-05-18] MEDS: METOPROLOL TARTRATE 50MG TABLET PO SCH ×2 (09:32→20:49)
[2022-05-18] MEDS: FUROSEMIDE 40MG/4ML VIAL IVP SCH (13:30)
[2022-05-18 17:15] LABS: BASOPHILS % 0.7 % (0.0-2.0); EOSINOPHILS % 2.6 % (0.0-5.0); HEMATOCRIT. 33.8 % (36.0-48.0); HEMOGLOBIN. 10.9 g/dL (12.0-16.0); LYMPHOCYTES % 17.8 % (20.0-50.0); MEAN CORPUSCULAR HEMOGLOBIN 27.2 pg (28.0-32.0); MEAN CORPUSCULAR VOLUME 84.2 fL (81.0-99.0); MEAN PLATELET VOLUME 9.5 fl (7.4-10.4); MONOCYTES % 10.7 % (2.0-8.0); NEUTROPHILS % 68.2 % (40.0-76.0); PLATELET 213 x1000/uL (130-400); RED BLOOD CELL COUNT 4.01 mill/uL (4.2-5.4)
[2022-05-19] VITALS (7 sets, daily range): BP systolic 144–181; BP diastolic 44–60
[2022-05-19] MEDS: CEFTRIAXONE 1,000 MG in DEXTROSE 5% WATER 50 ML IV SCH (05:40)
[2022-05-19] MEDS: CLONIDINE 0.1MG TABLET PO PRN ×2 (06:23→17:24)
[2022-05-19] MEDS: AMLODIPINE 2.5MG TABLET PO SCH (09:58)
[2022-05-19] MEDS: FUROSEMIDE 40MG/4ML VIAL IVP SCH (09:58)
[2022-05-19] MEDS: METOPROLOL TARTRATE 50MG TABLET PO SCH ×2 (09:58→20:28)
[2022-05-19] MEDS: ENOXAPARIN 30MG/0.3ML SYR SUBCUT SCH (09:58)
[2022-05-19] MEDS ORDERED: THIAMINE HCL 100MG TABLET PO SCH (15:45)
[2022-05-19] MEDS ORDERED: FOLIC ACID 1MG TABLET PO SCH (15:45)
== END 2022-05-19 22:04 | DRG 280 ==
LOC: ER 17:39 → MICUSO 23:23 → 5EST 05-16 04:34 → 7WST 05-18 10:54
PROVIDERS: ADMIT Family Medicine Adult Medicine; ATTEND Family Medicine Adult Medicine
DX: I21.4 Non-ST elevation (NSTEMI) myocardial infarction (principal); G93.41 Metabolic encephalopathy; I50.33 Acute on chronic diastolic (congestive) heart failure; E44.1 Mild protein-calorie malnutrition; I42.1 Obstructive hypertrophic cardiomyopathy; N39.0 Urinary tract infection, site not specified; G82.20 Paraplegia, unspecified; N17.9 Acute kidney failure, unspecified; D64.9 Anemia, unspecified; E11.649 Type 2 diabetes mellitus with hypoglycemia without coma; B96.20 Unspecified Escherichia coli [E. coli] as the cause of diseases classified elsewhere; E11.51 Type 2 diabetes mellitus with diabetic peripheral angiopathy without gangrene; E78.5 Hyperlipidemia, unspecified; I11.0 Hypertensive heart disease with heart failure; I25.10 Atherosclerotic heart disease of native coronary artery without angina pectoris; J44.9 Chronic obstructive pulmonary disease, unspecified; M10.9 Gout, unspecified; R26.89 Other abnormalities of gait and mobility; R53.81 Other malaise; M48.061 Spinal stenosis, lumbar region without neurogenic claudication; Z20.822 Contact with and (suspected) exposure to COVID-19; Z82.49 Family history of ischemic heart disease and other diseases of the circulatory system; Z86.73 Personal history of transient ischemic attack (TIA), and cerebral infarction without residual deficits; Z90.49 Acquired absence of other specified parts of digestive tract; Z68.25 Body mass index [BMI] 25.0-25.9, adult; Z91.041 Radiographic dye allergy status; Z91.013 Allergy to seafood; Z79.899 Other long term (current) drug therapy
CPT/HCPCS: 36415; 71045; 80048; 80053; 80061; 81003; 82140; 82550; 82553; 82962; 83605; 83735; 83880; 84145; 84443; 84484; 85025; 87077; 87186; 87426; 93005; 93306; 93970; 97162; 97530; 99291; C1893; J0696; J1650; J1940; J7060

== ENCOUNTER 2022-05-19 21:55 | Inpatient (IN) | payer MEDICARE, MEDICAID ==
[~2022-05-19] VITALS: Ht 157.5 cm; Wt 57.6 kg
[2022-05-19 22:10] VITALS: BP 146/51
[2022-05-19] MEDS ORDERED: ONDANSETRON HCL 4MG/2ML INJ IV PRN (23:15)
[2022-05-19] MEDS ORDERED: NALOXONE HCL 0.4 MG/ML 1ML VIAL IV PRN (23:15)
[2022-05-19] MEDS ORDERED: IPRATROPIUM/ALBUTEROL 0.5-3(2.5)MG/3ML NEB HHN PRN (23:15)
[2022-05-19] MEDS ORDERED: MAGNESIUM/ALUMINUM HYDROXIDE/SIMETHICONE 30ML UDC PO PRN (23:15)
[2022-05-19] MEDS ORDERED: CLONIDINE 0.1MG TABLET PO PRN (23:15)
[2022-05-19] MEDS ORDERED: ACETAMINOPHEN 325MG TABLET PO PRN (23:15)
[2022-05-19] MEDS ORDERED: GUAIFENESIN 200MG/10ML SUGAR FREE UDC PO PRN (23:15)
[2022-05-19] MEDS ORDERED: DEXTROSE 50% WATER 50ML SYRINGE IV PRN (23:15)
[2022-05-19] MEDS ORDERED: ACETAMINOPHEN 650MG SUPP PR PRN ×2 (23:15)
[2022-05-20] MEDS: HYDROCODONE/ACETAMINOPHEN 5/325MG TABLET PO PRN ×2 (04:59→15:01)
[2022-05-20 07:48] LABS: BASOPHILS % 0.9 % (0.0-2.0); EOSINOPHILS % 2.3 % (0.0-5.0); HEMATOCRIT. 31.4 % (36.0-48.0); HEMOGLOBIN. 10.2 g/dL (12.0-16.0); LYMPHOCYTES % 17.4 % (20.0-50.0); MEAN CORPUSCULAR HEMOGLOBIN 27.1 pg (28.0-32.0); MEAN CORPUSCULAR VOLUME 83.4 fL (81.0-99.0); MEAN PLATELET VOLUME 9.6 fl (7.4-10.4); MONOCYTES % 11.3 % (2.0-8.0); NEUTROPHILS % 68.1 % (40.0-76.0); PLATELET 204 x1000/uL (130-400); RED BLOOD CELL COUNT 3.77 mill/uL (4.2-5.4); RED CELL DISTRIBUTION WIDTH 16.4 % (11.6-14.6)
[2022-05-20 08:08] LABS: CHLORIDE 97 mEq/L (98-107)
[2022-05-20] MEDS ORDERED: AMLODIPINE 2.5MG TABLET PO SCH (09:00)
[2022-05-20] MEDS: CEFTRIAXONE 1,000 MG in DEXTROSE 5% WATER 50 ML IV SCH (09:53)
[2022-05-20] MEDS: ENOXAPARIN 30MG/0.3ML SYR SUBCUT SCH (09:54)
[2022-05-20] MEDS: THIAMINE HCL 100MG TABLET PO SCH (09:54)
[2022-05-20] MEDS: FOLIC ACID 1MG TABLET PO SCH (09:54)
[2022-05-20] MEDS: FUROSEMIDE 40MG/4ML VIAL IVP SCH (09:55)
[2022-05-20] MEDS: DOCUSATE SODIUM 100MG CAPSULE PO PRN (09:55)
[2022-05-20] MEDS: METOPROLOL TARTRATE 50MG TABLET PO SCH ×2 (09:55→21:00)
[2022-05-20] MEDS ORDERED: AMLODIPINE 2.5MG TABLET PO NR (12:30)
[2022-05-20 17:59] LABS: T4 FREE 1.31 ng/dL (0.76-1.46)
[2022-05-20 20:00] VITALS: BP_SYST 106; BP_SYST 149; BP_DIAS 63; BP_DIAS 64
[2022-05-21 06:39] LABS: EOSINOPHILS % 2.2 % (0.0-5.0); HEMATOCRIT. 32.6 % (36.0-48.0); HEMOGLOBIN. 10.7 g/dL (12.0-16.0); LYMPHOCYTES % 17.2 % (20.0-50.0); MEAN CORPUSCULAR HEMOGLOBIN 27.3 pg (28.0-32.0); MEAN CORPUSCULAR VOLUME 82.9 fL (81.0-99.0); MEAN PLATELET VOLUME 9.5 fl (7.4-10.4); MONOCYTES % 11.5 % (2.0-8.0); NEUTROPHILS % 68.1 % (40.0-76.0); PLATELET 218 x1000/uL (130-400); RED BLOOD CELL COUNT 3.93 mill/uL (4.2-5.4)
[2022-05-21 07:03] LABS: CHLORIDE 95 mEq/L (98-107)
[2022-05-21 07:31] LABS: TOTAL IRON BINDING CAPACITY 236 ug/dL (250-450)
[2022-05-21 07:37] LABS: FOLIC ACID (FOLATE) SERUM 17.9 ng/mL (>5.38)
[2022-05-21 08:02] VITALS: BP 179/66
[2022-05-21] MEDS: CEFTRIAXONE 1,000 MG in DEXTROSE 5% WATER 50 ML IV SCH (09:00)
[2022-05-21] MEDS ORDERED: AMLODIPINE 2.5MG TABLET PO SCH (09:00)
[2022-05-21] MEDS: FUROSEMIDE 40MG/4ML VIAL IVP SCH (09:01)
[2022-05-21] MEDS: METOPROLOL TARTRATE 50MG TABLET PO SCH ×2 (09:01→20:46)
[2022-05-21] MEDS: FOLIC ACID 1MG TABLET PO SCH (09:01)
[2022-05-21] MEDS: THIAMINE HCL 100MG TABLET PO SCH (09:01)
[2022-05-21] MEDS: ENOXAPARIN 30MG/0.3ML SYR SUBCUT SCH (09:02)
[2022-05-21] MEDS ORDERED: AMLODIPINE 5MG TABLET PO SCH (10:59)
[2022-05-21] MEDS: FERROUS SULFATE 325MG TABLET PO SCH ×2 (13:09→17:00)
[2022-05-21] MEDS: CYANOCOBALAMIN 1000MCG/ML VIAL IM SCH (13:09)
[2022-05-21] MEDS: HYDROCODONE/ACETAMINOPHEN 5/325MG TABLET PO PRN (15:10)
[2022-05-21 19:41] VITALS: BP 135/47
[2022-05-21] MEDS: AMLODIPINE 5MG TABLET PO SCH (20:47)
[2022-05-22 08:17] VITALS: BP 177/70
[2022-05-22] MEDS ORDERED: AMLODIPINE 5MG TABLET PO SCH (09:00)
[2022-05-22] MEDS: CEFTRIAXONE 1,000 MG in DEXTROSE 5% WATER 50 ML IV SCH (09:14)
[2022-05-22] MEDS: FUROSEMIDE 40MG/4ML VIAL IVP SCH (09:14)
[2022-05-22] MEDS: FOLIC ACID 1MG TABLET PO SCH (09:15)
[2022-05-22] MEDS: ASCORBIC ACID 500 MG TABLET PO SCH (09:15)
[2022-05-22] MEDS: AMLODIPINE 5MG TABLET PO SCH ×2 (09:15→20:15)
[2022-05-22] MEDS: FERROUS SULFATE 325MG TABLET PO SCH ×3 (09:15→17:00)
[2022-05-22] MEDS: CYANOCOBALAMIN 1000MCG/ML VIAL IM SCH (09:15)
[2022-05-22] MEDS: METOPROLOL TARTRATE 50MG TABLET PO SCH ×2 (09:15→20:14)
[2022-05-22] MEDS: ENOXAPARIN 30MG/0.3ML SYR SUBCUT SCH (09:16)
[2022-05-22] MEDS: THIAMINE HCL 100MG TABLET PO SCH (09:18)
[2022-05-22] MEDS ORDERED: DEXTROSE 50% WATER 50ML SYRINGE IV PRN (12:30)
[2022-05-22] MEDS: INSULIN LISPRO 100 UNITS/ML SUBCUT SCH ×3 (12:31→20:27)
[2022-05-22] MEDS: BLOOD SUGAR DIAGNOSTIC STRIP TEST SCH ×2 (17:00→20:20)
[2022-05-22 20:00] VITALS: BP 165/55
[2022-05-22] MEDS: HYDROCODONE/ACETAMINOPHEN 5/325MG TABLET PO PRN (20:15)
[2022-05-22 22:00] VITALS: BP 129/41
[2022-05-23] MEDS: BLOOD SUGAR DIAGNOSTIC STRIP TEST SCH ×4 (05:45→21:05)
[2022-05-23] MEDS: INSULIN LISPRO 100 UNITS/ML SUBCUT SCH ×4 (05:45→21:03)
[2022-05-23 08:00] VITALS: BP 147/60
[2022-05-23] MEDS: ENOXAPARIN 30MG/0.3ML SYR SUBCUT SCH (09:13)
[2022-05-23] MEDS: FERROUS SULFATE 325MG TABLET PO SCH ×3 (09:14→17:40)
[2022-05-23] MEDS: DOCUSATE SODIUM 100MG CAPSULE PO PRN (09:15)
[2022-05-23] MEDS: HYDROCODONE/ACETAMINOPHEN 5/325MG TABLET PO PRN ×2 (09:15→20:52)
[2022-05-23] MEDS: ASCORBIC ACID 500 MG TABLET PO SCH (09:15)
[2022-05-23] MEDS: FOLIC ACID 1MG TABLET PO SCH (09:15)
[2022-05-23] MEDS: THIAMINE HCL 100MG TABLET PO SCH (09:16)
[2022-05-23] MEDS: CYANOCOBALAMIN 1000MCG/ML VIAL IM SCH (09:16)
[2022-05-23] MEDS: FUROSEMIDE 40MG/4ML VIAL IVP SCH (09:16)
[2022-05-23] MEDS: METOPROLOL TARTRATE 50MG TABLET PO SCH ×2 (10:59→20:38)
[2022-05-23] MEDS: AMLODIPINE 5MG TABLET PO SCH ×2 (10:59→20:37)
[2022-05-23] MEDS ORDERED: INSULIN LISPRO 100 UNITS/ML SUBCUT NR (13:30)
[2022-05-23 20:00] VITALS: BP 138/58
[2022-05-24] MEDS: INSULIN LISPRO 100 UNITS/ML SUBCUT SCH ×4 (05:45→21:50)
[2022-05-24] MEDS: BLOOD SUGAR DIAGNOSTIC STRIP TEST SCH ×4 (05:57→21:12)
[2022-05-24] MEDS: AMLODIPINE 5MG TABLET PO SCH ×2 (06:43→21:00)
[2022-05-24 08:00] VITALS: BP 158/50
[2022-05-24] MEDS: FUROSEMIDE 40MG/4ML VIAL IVP SCH (08:58)
[2022-05-24] MEDS: METOPROLOL TARTRATE 50MG TABLET PO SCH ×2 (08:59→21:00)
[2022-05-24] MEDS: FOLIC ACID 1MG TABLET PO SCH (08:59)
[2022-05-24] MEDS: CYANOCOBALAMIN 1000MCG/ML VIAL IM SCH (08:59)
[2022-05-24] MEDS: DOCUSATE SODIUM 100MG CAPSULE PO PRN ×2 (08:59→17:16)
[2022-05-24] MEDS: THIAMINE HCL 100MG TABLET PO SCH (08:59)
[2022-05-24] MEDS: ASCORBIC ACID 500 MG TABLET PO SCH (08:59)
[2022-05-24] MEDS: ENOXAPARIN 30MG/0.3ML SYR SUBCUT SCH (09:00)
[2022-05-24] MEDS: FERROUS SULFATE 325MG TABLET PO SCH ×3 (09:00→17:16)
[2022-05-24 17:07] LABS: 25-HYDROXY VITAMIN D3 14 ng/mL (.)
[2022-05-24] MEDS: ASPIRIN 81MG TABLET PO SCH (17:16)
[2022-05-24] MEDS: HYDROCODONE/ACETAMINOPHEN 5/325MG TABLET PO PRN (17:17)
[2022-05-24 20:00] VITALS: BP 115/54
[2022-05-25] MEDS: BLOOD SUGAR DIAGNOSTIC STRIP TEST SCH ×4 (06:20→20:47)
[2022-05-25] MEDS: INSULIN LISPRO 100 UNITS/ML SUBCUT SCH ×4 (06:30→22:14)
[2022-05-25 08:00] VITALS: BP 115/54
[2022-05-25] MEDS: CYANOCOBALAMIN 1000MCG/ML VIAL IM SCH (09:00)
[2022-05-25 09:11] LABS: BASOPHILS % 1.1 % (0.0-2.0); EOSINOPHILS % 1.8 % (0.0-5.0); HEMATOCRIT. 30.6 % (36.0-48.0); HEMOGLOBIN. 9.8 g/dL (12.0-16.0); LYMPHOCYTES % 20.8 % (20.0-50.0); MEAN CORPUSCULAR VOLUME 84.2 fL (81.0-99.0); MONOCYTES % 12.4 % (2.0-8.0); NEUTROPHILS % 63.9 % (40.0-76.0); PLATELET 265 x1000/uL (130-400); RED BLOOD CELL COUNT 3.63 mill/uL (4.2-5.4); RED CELL DISTRIBUTION WIDTH 15.7 % (11.6-14.6)
[2022-05-25] MEDS: ENOXAPARIN 30MG/0.3ML SYR SUBCUT SCH (10:30)
[2022-05-25] MEDS: ASCORBIC ACID 500 MG TABLET PO SCH (10:31)
[2022-05-25] MEDS: FUROSEMIDE 20MG TABLET PO SCH (10:31)
[2022-05-25] MEDS: FOLIC ACID 1MG TABLET PO SCH (10:32)
[2022-05-25] MEDS: FERROUS SULFATE 325MG TABLET PO SCH ×3 (10:32→17:00)
[2022-05-25] MEDS: ASPIRIN 81MG TABLET PO SCH (10:32)
[2022-05-25] MEDS: AMLODIPINE 5MG TABLET PO SCH ×2 (10:32→20:47)
[2022-05-25] MEDS: METOPROLOL TARTRATE 50MG TABLET PO SCH ×2 (10:33→20:47)
[2022-05-25] MEDS: THIAMINE HCL 100MG TABLET PO SCH (10:33)
[2022-05-25] MEDS ORDERED: ERGOCALCIFEROL 50000UNITS CAPSULE PO SCH (15:00)
[2022-05-25 20:00] VITALS: BP 128/44
[2022-05-25] MEDS: ACETAMINOPHEN 325MG TABLET PO PRN (22:08)
[2022-05-26] MEDS: BLOOD SUGAR DIAGNOSTIC STRIP TEST SCH ×4 (06:30→21:00)
[2022-05-26] MEDS: INSULIN LISPRO 100 UNITS/ML SUBCUT SCH ×4 (09:00→21:31)
[2022-05-26] MEDS: ASCORBIC ACID 500 MG TABLET PO SCH (09:00)
[2022-05-26] MEDS: FERROUS SULFATE 325MG TABLET PO SCH ×3 (13:00→17:00)
[2022-05-26] MEDS: ASPIRIN 81MG TABLET PO SCH (13:09)
[2022-05-26] MEDS: FUROSEMIDE 20MG TABLET PO SCH (13:09)
[2022-05-26] MEDS: THIAMINE HCL 100MG TABLET PO SCH (13:09)
[2022-05-26] MEDS: FOLIC ACID 1MG TABLET PO SCH (13:10)
[2022-05-26] MEDS: METOPROLOL TARTRATE 50MG TABLET PO SCH ×2 (13:10→21:28)
[2022-05-26] MEDS: AMLODIPINE 5MG TABLET PO SCH ×2 (13:10→21:28)
[2022-05-26] MEDS: CYANOCOBALAMIN 1000MCG/ML VIAL IM SCH (13:10)
[2022-05-26] MEDS: ENOXAPARIN 30MG/0.3ML SYR SUBCUT SCH (13:11)
[2022-05-26 20:00] VITALS: BP 152/67
[2022-05-26] MEDS: ACETAMINOPHEN 325MG TABLET PO PRN (21:28)
[2022-05-27] MEDS: BLOOD SUGAR DIAGNOSTIC STRIP TEST SCH ×4 (06:30→21:17)
[2022-05-27 07:58] VITALS: BP 105/44
[2022-05-27] MEDS: INSULIN LISPRO 100 UNITS/ML SUBCUT SCH ×4 (08:05→21:00)
[2022-05-27] MEDS: METOPROLOL TARTRATE 50MG TABLET PO SCH ×2 (09:00→20:56)
[2022-05-27] MEDS: AMLODIPINE 5MG TABLET PO SCH ×2 (09:00→20:55)
[2022-05-27] MEDS: ASCORBIC ACID 500 MG TABLET PO SCH (09:57)
[2022-05-27] MEDS: THIAMINE HCL 100MG TABLET PO SCH (09:57)
[2022-05-27] MEDS: FOLIC ACID 1MG TABLET PO SCH (09:57)
[2022-05-27] MEDS: FERROUS SULFATE 325MG TABLET PO SCH ×3 (09:57→17:11)
[2022-05-27] MEDS: ASPIRIN 81MG TABLET PO SCH (09:57)
[2022-05-27] MEDS: FUROSEMIDE 20MG TABLET PO SCH (09:57)
[2022-05-27] MEDS: CYANOCOBALAMIN 1000MCG/ML VIAL IM SCH (09:58)
[2022-05-27] MEDS: ENOXAPARIN 30MG/0.3ML SYR SUBCUT SCH (10:00)
[2022-05-27] MEDS: ACETAMINOPHEN 325MG TABLET PO PRN (18:45)
[2022-05-27] MEDS ORDERED: NALOXONE HCL 0.4MG/ML VIAL IV PRN (19:30)
[2022-05-27 20:00] VITALS: BP 167/65
[2022-05-28 06:21] LABS: EOSINOPHILS % 1.8 % (0.0-5.0); HEMATOCRIT. 27.7 % (36.0-48.0); HEMOGLOBIN. 9.2 g/dL (12.0-16.0); LYMPHOCYTES % 21.3 % (20.0-50.0); MEAN CORPUSCULAR HEMOGLOBIN 27.9 pg (28.0-32.0); MEAN CORPUSCULAR VOLUME 84.1 fL (81.0-99.0); MEAN PLATELET VOLUME 9.1 fl (7.4-10.4); MONOCYTES % 10.2 % (2.0-8.0); NEUTROPHILS % 65.7 % (40.0-76.0); PLATELET 303 x1000/uL (130-400); RED CELL DISTRIBUTION WIDTH 15.9 % (11.6-14.6)
[2022-05-28] MEDS: BLOOD SUGAR DIAGNOSTIC STRIP TEST SCH ×4 (06:30→21:06)
[2022-05-28 08:00] VITALS: BP 153/57
[2022-05-28] MEDS: ASCORBIC ACID 500 MG TABLET PO SCH (08:41)
[2022-05-28] MEDS: METOPROLOL TARTRATE 50MG TABLET PO SCH ×2 (08:41→21:03)
[2022-05-28] MEDS: FERROUS SULFATE 325MG TABLET PO SCH ×3 (08:41→17:16)
[2022-05-28] MEDS: THIAMINE HCL 100MG TABLET PO SCH (08:41)
[2022-05-28] MEDS: FOLIC ACID 1MG TABLET PO SCH (08:41)
[2022-05-28] MEDS: ASPIRIN 81MG TABLET PO SCH (08:41)
[2022-05-28] MEDS: FUROSEMIDE 20MG TABLET PO SCH (08:41)
[2022-05-28] MEDS: AMLODIPINE 5MG TABLET PO SCH ×2 (08:41→21:03)
[2022-05-28] MEDS: ENOXAPARIN 30MG/0.3ML SYR SUBCUT SCH (08:49)
[2022-05-28] MEDS: INSULIN LISPRO 100 UNITS/ML SUBCUT SCH ×4 (08:51→21:49)
[2022-05-28] MEDS: TRAMADOL 50MG TABLET PO PRN (12:43)
[2022-05-28] MEDS: DOCUSATE SODIUM 100MG CAPSULE PO PRN (17:16)
[2022-05-28 20:00] VITALS: BP 145/54
[2022-05-29] MEDS: BLOOD SUGAR DIAGNOSTIC STRIP TEST SCH ×4 (06:25→20:10)
[2022-05-29] MEDS: INSULIN LISPRO 100 UNITS/ML SUBCUT SCH ×4 (06:34→20:46)
[2022-05-29 08:00] VITALS: BP 130/61
[2022-05-29] MEDS: THIAMINE HCL 100MG TABLET PO SCH (09:10)
[2022-05-29] MEDS: FOLIC ACID 1MG TABLET PO SCH (09:10)
[2022-05-29] MEDS: FUROSEMIDE 20MG TABLET PO SCH (09:10)
[2022-05-29] MEDS: ASPIRIN 81MG TABLET PO SCH (09:11)
[2022-05-29] MEDS: FERROUS SULFATE 325MG TABLET PO SCH ×3 (09:13→17:15)
[2022-05-29] MEDS: AMLODIPINE 5MG TABLET PO SCH ×2 (09:13→20:10)
[2022-05-29] MEDS: METOPROLOL TARTRATE 50MG TABLET PO SCH ×2 (09:15→20:10)
[2022-05-29] MEDS: ASCORBIC ACID 500 MG TABLET PO SCH (09:20)
[2022-05-29] MEDS: ENOXAPARIN 30MG/0.3ML SYR SUBCUT SCH (09:22)
[2022-05-29] MEDS: TRAMADOL 50MG TABLET PO PRN (13:38)
[2022-05-29 20:00] VITALS: BP 161/62
[2022-05-29 20:48] VITALS: BP 157/64
[2022-05-30] MEDS: BLOOD SUGAR DIAGNOSTIC STRIP TEST SCH ×4 (05:31→20:40)
[2022-05-30] MEDS: INSULIN LISPRO 100 UNITS/ML SUBCUT SCH ×4 (06:17→20:48)
[2022-05-30 08:00] VITALS: BP 132/55
[2022-05-30] MEDS: METOPROLOL TARTRATE 50MG TABLET PO SCH ×2 (09:00→20:35)
[2022-05-30] MEDS: TRAMADOL 50MG TABLET PO PRN (09:20)
[2022-05-30] MEDS: DOCUSATE SODIUM 100MG CAPSULE PO PRN (09:21)
[2022-05-30] MEDS: FOLIC ACID 1MG TABLET PO SCH (09:21)
[2022-05-30] MEDS: ASPIRIN 81MG TABLET PO SCH (09:21)
[2022-05-30] MEDS: FERROUS SULFATE 325MG TABLET PO SCH ×3 (09:21→17:47)
[2022-05-30] MEDS: FUROSEMIDE 20MG TABLET PO SCH (09:21)
[2022-05-30] MEDS: AMLODIPINE 5MG TABLET PO SCH ×2 (09:21→20:35)
[2022-05-30] MEDS: THIAMINE HCL 100MG TABLET PO SCH (09:22)
[2022-05-30] MEDS: ENOXAPARIN 30MG/0.3ML SYR SUBCUT SCH (09:22)
[2022-05-30] MEDS: ASCORBIC ACID 500 MG TABLET PO SCH (09:22)
[2022-05-30] MEDS ORDERED: LACTULOSE 20G/30ML UDC PO PRN (11:15)
[2022-05-30 20:00] VITALS: BP 120/43
[2022-05-31] MEDS: BLOOD SUGAR DIAGNOSTIC STRIP TEST SCH ×4 (06:31→20:22)
[2022-05-31] MEDS: INSULIN LISPRO 100 UNITS/ML SUBCUT SCH ×4 (06:43→20:30)
[2022-05-31 08:00] VITALS: BP 145/49
[2022-05-31] MEDS: FOLIC ACID 1MG TABLET PO SCH (10:52)
[2022-05-31] MEDS: AMLODIPINE 5MG TABLET PO SCH ×2 (10:59→20:18)
[2022-05-31] MEDS: ASPIRIN 81MG TABLET PO SCH (10:59)
[2022-05-31] MEDS: THIAMINE HCL 100MG TABLET PO SCH (10:59)
[2022-05-31] MEDS: ASCORBIC ACID 500 MG TABLET PO SCH (10:59)
[2022-05-31] MEDS: FERROUS SULFATE 325MG TABLET PO SCH ×3 (10:59→17:53)
[2022-05-31] MEDS: METOPROLOL TARTRATE 50MG TABLET PO SCH ×2 (10:59→20:18)
[2022-05-31] MEDS: FUROSEMIDE 20MG TABLET PO SCH (11:00)
[2022-05-31] MEDS: ENOXAPARIN 30MG/0.3ML SYR SUBCUT SCH (11:00)
[2022-05-31 20:00] VITALS: BP 137/47
[2022-06-01] MEDS: BLOOD SUGAR DIAGNOSTIC STRIP TEST SCH ×4 (05:46→20:42)
[2022-06-01 06:41] LABS: BASOPHILS % 0.9 % (0.0-2.0); EOSINOPHILS % 2.7 % (0.0-5.0); HEMATOCRIT. 26.5 % (36.0-48.0); HEMOGLOBIN. 8.7 g/dL (12.0-16.0); LYMPHOCYTES % 19.9 % (20.0-50.0); MEAN CORPUSCULAR HEMOGLOBIN 27.8 pg (28.0-32.0); MEAN CORPUSCULAR VOLUME 84.5 fL (81.0-99.0); MEAN PLATELET VOLUME 9.2 fl (7.4-10.4); MONOCYTES % 11.3 % (2.0-8.0); NEUTROPHILS % 65.2 % (40.0-76.0); PLATELET 340 x1000/uL (130-400); RED BLOOD CELL COUNT 3.14 mill/uL (4.2-5.4); RED CELL DISTRIBUTION WIDTH 16.3 % (11.6-14.6)
[2022-06-01] MEDS: INSULIN LISPRO 100 UNITS/ML SUBCUT SCH ×4 (06:47→20:59)
[2022-06-01 08:00] VITALS: BP 152/42
[2022-06-01] MEDS: FERROUS SULFATE 325MG TABLET PO SCH ×3 (08:53→16:49)
[2022-06-01] MEDS: THIAMINE HCL 100MG TABLET PO SCH (08:54)
[2022-06-01] MEDS: FUROSEMIDE 20MG TABLET PO SCH (08:54)
[2022-06-01] MEDS: ASPIRIN 81MG TABLET PO SCH (08:54)
[2022-06-01] MEDS: FOLIC ACID 1MG TABLET PO SCH (08:54)
[2022-06-01] MEDS: ASCORBIC ACID 500 MG TABLET PO SCH (08:54)
[2022-06-01] MEDS: AMLODIPINE 5MG TABLET PO SCH ×2 (08:54→20:55)
[2022-06-01] MEDS: ENOXAPARIN 30MG/0.3ML SYR SUBCUT SCH (08:55)
[2022-06-01] MEDS: METOPROLOL TARTRATE 50MG TABLET PO SCH ×2 (08:55→20:55)
[2022-06-01] MEDS ORDERED: ERGOCALCIFEROL 50000UNITS CAPSULE PO SCH (09:00)
[2022-06-01] MEDS ORDERED: FURO20TA4 PO (09:33)
[2022-06-01] MEDS ORDERED: AMLO5TAB88 PO (09:33)
[2022-06-01] MEDS ORDERED: METO-539 PO (09:33)
[2022-06-01] MEDS ORDERED: ASPI-1160 PO (09:33)
[2022-06-01] MEDS: INSULIN GLARGINE 100 UNITS/ML SUBCUT SCH ×2 (10:00→20:58)
[2022-06-01] MEDS: ACETAMINOPHEN 325MG TABLET PO PRN (20:54)
[2022-06-02] MEDS: BLOOD SUGAR DIAGNOSTIC STRIP TEST SCH ×2 (07:00→12:00)
[2022-06-02 08:00] VITALS: BP 147/52
[2022-06-02] MEDS: INSULIN LISPRO 100 UNITS/ML SUBCUT SCH ×2 (09:00→12:35)
[2022-06-02] MEDS: ASCORBIC ACID 500 MG TABLET PO SCH (09:32)
[2022-06-02] MEDS: FOLIC ACID 1MG TABLET PO SCH (09:32)
[2022-06-02] MEDS: ASPIRIN 81MG TABLET PO SCH (09:32)
[2022-06-02] MEDS: DOCUSATE SODIUM 100MG CAPSULE PO PRN (09:33)
[2022-06-02] MEDS: THIAMINE HCL 100MG TABLET PO SCH (09:33)
[2022-06-02] MEDS: FERROUS SULFATE 325MG TABLET PO SCH ×2 (09:33→12:32)
[2022-06-02] MEDS: FUROSEMIDE 20MG TABLET PO SCH (09:33)
[2022-06-02] MEDS: AMLODIPINE 5MG TABLET PO SCH (09:33)
[2022-06-02] MEDS: METOPROLOL TARTRATE 50MG TABLET PO SCH (09:33)
[2022-06-02] MEDS: ENOXAPARIN 30MG/0.3ML SYR SUBCUT SCH (09:36)
[2022-06-02] MEDS: INSULIN GLARGINE 100 UNITS/ML SUBCUT SCH (10:16)
[2022-06-02 11:19] VITALS: BP 141/57
[2022-06-03] MEDS ORDERED: CYANOCOBALAMIN 1000MCG/ML VIAL IM SCH (09:00)
== END 2022-06-02 15:05 | disposition home health service (06) | DRG 91 ==
PROVIDERS: ADMIT Physical Medicine & Rehabilitation Spinal Cord Injury Medicine; ATTEND Family Medicine Adult Medicine
DX: G92.8 Other toxic encephalopathy (principal); E43 Unspecified severe protein-calorie malnutrition; I50.31 Acute diastolic (congestive) heart failure; G62.81 Critical illness polyneuropathy; N17.9 Acute kidney failure, unspecified; E87.1 Hypo-osmolality and hyponatremia; G82.20 Paraplegia, unspecified; N39.0 Urinary tract infection, site not specified; I42.1 Obstructive hypertrophic cardiomyopathy; I11.0 Hypertensive heart disease with heart failure; B96.20 Unspecified Escherichia coli [E. coli] as the cause of diseases classified elsewhere; D64.9 Anemia, unspecified; E11.51 Type 2 diabetes mellitus with diabetic peripheral angiopathy without gangrene; E78.00 Pure hypercholesterolemia, unspecified; E78.5 Hyperlipidemia, unspecified; E87.8 Other disorders of electrolyte and fluid balance, not elsewhere classified; F03.90 Unspecified dementia, unspecified severity, without behavioral disturbance, psychotic disturbance, mood disturbance, and anxiety; F32.A Depression, unspecified; F41.9 Anxiety disorder, unspecified; I25.10 Atherosclerotic heart disease of native coronary artery without angina pectoris; M10.9 Gout, unspecified; J44.9 Chronic obstructive pulmonary disease, unspecified; M48.061 Spinal stenosis, lumbar region without neurogenic claudication; E61.1 Iron deficiency; E55.9 Vitamin D deficiency, unspecified; E53.8 Deficiency of other specified B group vitamins; R53.81 Other malaise; R26.89 Other abnormalities of gait and mobility; Z82.49 Family history of ischemic heart disease and other diseases of the circulatory system; Z86.73 Personal history of transient ischemic attack (TIA), and cerebral infarction without residual deficits; Z68.23 Body mass index [BMI] 23.0-23.9, adult; M79.609 Pain in unspecified limb
CPT/HCPCS: 36415; 70551; 72141; 72146; 72148; 80048; 80053; 82140; 82306; 82607; 82728; 82746; 82962; 83036; 83540; 83550; 83735; 84134; 84439; 84443; 84481; 85025; 92523; 92610; 93970; 97110; 97116; 97150; 97162; 97166; 97530; 97535; J0696; J1650; J1815; J1940; J3420; J7060

== ENCOUNTER 2022-06-06 17:01 | Inpatient (IN) | payer MEDICARE, MEDICAID ==
[~2022-06-06] VITALS: Ht 157.5 cm; Wt 61.9 kg
[~2022-06-06 17:01] MED LIST changes: +AMLO5TAB88 PO; +ASPI-1160 PO; -ATEN50TA PO; -CLON0.3T PO; +FURO20TA4 PO; -FURO40TA5 PO; +METO-539 PO; -VALS160T2 PO; -VERA240C2 PO
[2022-06-06 19:33] LABS: BASOPHILS % 0.7 % (0.0-2.0); EOSINOPHILS % 1.7 % (0.0-5.0); HEMATOCRIT. 27.7 % (36.0-48.0); HEMOGLOBIN. 8.9 g/dL (12.0-16.0); LYMPHOCYTES % 22.5 % (20.0-50.0); MEAN CORPUSCULAR HEMOGLOBIN 27.6 pg (28.0-32.0); MEAN CORPUSCULAR VOLUME 85.8 fL (81.0-99.0); MONOCYTES % 9.2 % (2.0-8.0); NEUTROPHILS % 65.9 % (40.0-76.0); PLATELET 335 x1000/uL (130-400); RED BLOOD CELL COUNT 3.23 mill/uL (4.2-5.4); RED CELL DISTRIBUTION WIDTH 16.6 % (11.6-14.6)
[2022-06-06 19:36] LABS: CHLORIDE 101 mEq/L (98-107)
[2022-06-06] MEDS ORDERED: FUROSEMIDE 20MG/2ML VIAL IVP ONE (23:30)
[2022-06-07 01:54] LABS: CLARITY URINE CLEAR (CLEAR); COLOR URINE YELLOW (YELLOW); KETONES URINE NEGATIVE (NEGATIVE); LEUKOCYTE ESTERASE URINE NEGATIVE (NEGATIVE); NITRITE URINE NEGATIVE (NEGATIVE); OCCULT BLOOD URINE NEGATIVE (NEGATIVE); PH URINE 5.5 (4.5-8.0); PROTEIN URINE NEGATIVE (NEGATIVE); UROBILINOGEN URINE 0.2 E.U./dL (0.2-1.0)
[2022-06-07] MEDS ORDERED: ACETAMINOPHEN 325MG TABLET PO PRN (09:00)
[2022-06-07] MEDS ORDERED: ONDANSETRON HCL 4MG/2ML INJ IV PRN (09:00)
[2022-06-07] MEDS: FUROSEMIDE 40MG/4ML VIAL IVP SCH (09:40)
[2022-06-07] MEDS: BLOOD SUGAR DIAGNOSTIC STRIP TEST SCH ×5 (09:52→21:26)
[2022-06-07 16:00] VITALS: BP 147/47
[2022-06-07] MEDS: AMLODIPINE 5MG TABLET PO SCH (16:58)
[2022-06-07] MEDS: IRON SUCROSE COMPLEX 100 MG/5 ML ML IV SCH (16:58)
[2022-06-07 17:29] VITALS: BP 147/47
[2022-06-07 20:00] VITALS: BP 144/49
[2022-06-07] MEDS ORDERED: ENOXAPARIN 30MG/0.3ML SYR SUBCUT SCH (20:00)
[2022-06-07] MEDS ORDERED: DEXTROSE 50% WATER 50ML SYRINGE IV PRN (21:00)
[2022-06-07] MEDS: INSULIN LISPRO 100 UNITS/ML SUBCUT SCH (21:37)
[2022-06-08] VITALS: BP 154/47
[2022-06-08 04:00] VITALS: BP 149/48
[2022-06-08] MEDS: BLOOD SUGAR DIAGNOSTIC STRIP TEST SCH ×4 (06:36→12:20)
[2022-06-08] MEDS: INSULIN LISPRO 100 UNITS/ML SUBCUT SCH ×2 (07:50→12:55)
[2022-06-08 08:00] VITALS: BP 144/52
[2022-06-08] MEDS: FUROSEMIDE 40MG/4ML VIAL IVP SCH (08:58)
[2022-06-08] MEDS: AMLODIPINE 5MG TABLET PO SCH (08:58)
[2022-06-08 09:29] LABS: CHLORIDE 100 mEq/L (98-107)
[2022-06-08 09:52] LABS: BASOPHILS % 0.7 % (0.0-2.0); EOSINOPHILS % 3.6 % (0.0-5.0); HEMATOCRIT. 28.9 % (36.0-48.0); HEMOGLOBIN. 9.4 g/dL (12.0-16.0); MEAN CORPUSCULAR HEMOGLOBIN 27.8 pg (28.0-32.0); MEAN PLATELET VOLUME 8.8 fl (7.4-10.4); MONOCYTES % 12.1 % (2.0-8.0); NEUTROPHILS % 57.6 % (40.0-76.0); PLATELET 344 x1000/uL (130-400); RED CELL DISTRIBUTION WIDTH 15.8 % (11.6-14.6)
[2022-06-08 11:52] VITALS: BP 140/58
[2022-06-08 12:13] VITALS: BP 140/58
[2022-06-08] MEDS ORDERED: ASPIRIN 81MG TABLET PO SCH (12:30)
[2022-06-08] MEDS: IRON SUCROSE COMPLEX 100 MG/5 ML ML IV SCH (14:47)
[2022-06-08 16:00] VITALS: BP 138/60
== END 2022-06-08 18:35 | disposition home health service (06) | DRG 291 ==
LOC: ER 17:01 → MICUSO 23:22 → 6WST 06-07 16:15
PROVIDERS: ADMIT Internal Medicine; ATTEND Internal Medicine
DX: I11.0 Hypertensive heart disease with heart failure (principal); I50.33 Acute on chronic diastolic (congestive) heart failure; E44.1 Mild protein-calorie malnutrition; I42.1 Obstructive hypertrophic cardiomyopathy; D64.9 Anemia, unspecified; E78.5 Hyperlipidemia, unspecified; J44.9 Chronic obstructive pulmonary disease, unspecified; I25.10 Atherosclerotic heart disease of native coronary artery without angina pectoris; E11.51 Type 2 diabetes mellitus with diabetic peripheral angiopathy without gangrene; E11.649 Type 2 diabetes mellitus with hypoglycemia without coma; E78.00 Pure hypercholesterolemia, unspecified; M10.9 Gout, unspecified; E89.0 Postprocedural hypothyroidism; F17.200 Nicotine dependence, unspecified, uncomplicated; Z88.8 Allergy status to other drugs, medicaments and biological substances; Z68.24 Body mass index [BMI] 24.0-24.9, adult; Z98.890 Other specified postprocedural states; Z91.013 Allergy to seafood; Z79.899 Other long term (current) drug therapy; Z90.49 Acquired absence of other specified parts of digestive tract; Z86.73 Personal history of transient ischemic attack (TIA), and cerebral infarction without residual deficits; Z95.820 Peripheral vascular angioplasty status with implants and grafts
CPT/HCPCS: 36415; 71045; 71250; 80053; 81003; 82962; 83735; 83880; 84443; 84484; 85025; 85379; 93005; 99291; J1650; J1815; J1940

== ENCOUNTER 2022-10-01 18:39 | Emergency (ER) | payer MEDICARE, MEDICAID ==
[~2022-10-01] VITALS: Ht 160 cm; Wt 67.0 kg
[2022-10-01] MEDS ORDERED: FLUORESCEIN SODIUM 1MG/STRIP RIGHTEYE ONE (20:15)
[2022-10-01] MEDS ORDERED: TETRACAINE 0.5% OPHTH DROPS 4ML RIGHTEYE ONE (20:15)
[2022-10-01] MEDS ORDERED: TETRACAINE 0.5% OPHTH DROPS 4ML RIGHTEYE NR (22:15)
[2022-10-01] MEDS ORDERED: FLUORESCEIN SODIUM 1MG/STRIP RIGHTEYE NR (22:15)
[2022-10-01 23:42] LABS: BASOPHILS % 0.9 % (0.0-2.0); HEMATOCRIT. 34.2 % (36.0-48.0); HEMOGLOBIN. 11.3 g/dL (12.0-16.0); LYMPHOCYTES % 22.2 % (20.0-50.0); MEAN CORPUSCULAR HEMOGLOBIN 28.4 pg (28.0-32.0); MEAN CORPUSCULAR VOLUME 85.9 fL (81.0-99.0); MEAN PLATELET VOLUME 8.4 fl (7.4-10.4); MONOCYTES % 11.9 % (2.0-8.0); PLATELET 281 x1000/uL (130-400); RED BLOOD CELL COUNT 3.98 mill/uL (4.2-5.4); RED CELL DISTRIBUTION WIDTH 14.9 % (11.6-14.6)
[2022-10-01 23:46] LABS: INR 1.1; PROTHROMBIN TIME 11.3 sec (9.6-11.0)
[2022-10-01 23:47] LABS: CHLORIDE 100 mEq/L (98-107)
[2022-10-02] VITALS: BP 186/61
== END 2022-10-02 01:11 | disposition home or self-care (01) ==
LOC: ER 18:39
DX: H54.7 Unspecified visual loss (principal); H57.11 Ocular pain, right eye; M25.572 Pain in left ankle and joints of left foot; E11.9 Type 2 diabetes mellitus without complications; I10 Essential (primary) hypertension; Z79.899 Other long term (current) drug therapy
CPT/HCPCS: 36415; 70480; 73610; 73630; 80053; 85025; 99285